=== PATIENT | male | born 1995 | race Caucasian/White ===

== ENCOUNTER 2020-01-13 21:34 | Observation (INO) | payer BC, MEDICAID ==
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
[2020-01-13] MEDS ORDERED: Diphtheria,Pertussis(Acell),Tetanus Vaccine 0.5 ML SDV IM ONE (23:24)
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
[2020-01-13] MEDS: Nicotine 14 MG/24 Hr Patch TRDERM SCH (23:50)
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
--- NOTE | 2020-01-14 09:42 | CT ---
CERVICAL SPINE CT, 01/13/20 Multislice axial acquisition was performed. Axial images and sagittal and coronal reformations are reviewed. No acute fracture or dislocation. No lytic or blastic bone lesions. The vertebral bodies are of average height and in good alignment. The disk spaces are relatively intact. The soft tissues are unremarkable. IMPRESSION: No acute abnormalities. [id number] [facility]
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
== END 2020-01-14 00:54 | disposition left against medical advice (07) ==
LOC: LB.ED 21:34 → LB.MS 23:00
PROVIDERS: ADMIT Nurse Practitioner; ATTEND Nurse Practitioner
DX: S05.12XA Contusion of eyeball and orbital tissues, left eye, initial encounter (principal); V49.9XXA Car occupant (driver) (passenger) injured in unspecified traffic accident, initial encounter
CPT/HCPCS: 36415; 70450; 70486; 71250; 72125; 74176; 80053; 80307; 85025; 99285-25; A9270-GY; G0378

== ENCOUNTER 2022-05-23 19:48 | Emergency (ER) | payer MEDICAID ==
[2022-05-23 21:18] LABS: ESTIMATED GFR 105 mL/min (>60)
[2022-05-23] MEDS ORDERED: Ketamine 200 MG/20 ML MDV IV ONE (21:33)
[2022-05-23] MEDS ORDERED: Sodium Chloride 0.9% 1,000 ML IV SCH (21:45)
[2022-05-23] MEDS ORDERED: Ketamine 200 MG/20 ML MDV ONE (21:47)
[2022-05-24] MEDS: Nicotine 7 MG/24 Hr Patch TRDERM SCH (14:24)
[2022-05-24] MEDS ORDERED: Levothyroxine 25 MCG Tab ONE (21:10)
[2022-05-24] MEDS: Levothyroxine 25 MCG Tab PO SCH (21:12)
[2022-05-25] MEDS: Levothyroxine 25 MCG Tab PO SCH (07:23)
[2022-05-25] MEDS: Nicotine 7 MG/24 Hr Patch TRDERM SCH (07:23)
[2022-05-25] MEDS ORDERED: Calcium Carbonate 500 MG Tab.Chew PO PRN (17:31)
[2022-05-25] MEDS ORDERED: LORazepam 1 MG Tab PO ONE (18:41)
[2022-05-25] MEDS ORDERED: LORazepam 1 MG Tab ONE (18:45)
== END 2022-05-25 18:50 ==
LOC: LB.ED 19:48
DX: F33.1 Major depressive disorder, recurrent, moderate (principal); R45.851 Suicidal ideations; F17.210 Nicotine dependence, cigarettes, uncomplicated; Z20.822 Contact with and (suspected) exposure to COVID-19
CPT/HCPCS: 36415; 80053; 80307; 84439; 84443; 85027; 86376; 96365; 99284; 99285-25; A0425; A0429; A9270-GY; J7030; U0002